=== PATIENT | female | born 1965 | race Asian ===

== ENCOUNTER → 2022-09-03 14:33 | Outpatient (CLI) | payer OTHER, SELFPAY ==
--- NOTE | 2022-09-03 14:38 | DI.RAD.S_ITS ---
PROCEDURE: XR SHOULDER LT MIN 2V INDICATIONS: Left shoulder pain TECHNIQUE: 3 views of the shoulder were acquired. COMPARISON: [facility], , SHOULDER MINIMUM 2VIEW RIGHT, 10/31/2013, 10:03. FINDINGS: Bones: No fractures or dislocations. No suspicious bony lesions. Visualized ribs appear intact. Degenerative changes of the left acromioclavicular joint. Soft tissue calcification adjacent to the superolateral margin of the humeral head compatible with sequela of chronic calcific rotator cuff tendinopathy. Coracoclavicular and acromioclavicular intervals are maintained. Soft tissues: No suspicious soft tissue calcifications. IMPRESSION: Left shoulder without acute fracture or dislocation. Degenerative changes of the left acromioclavicular joint. Findings compatible with chronic calcific rotator cuff tendinopathy. Dictated by: Matt Camargo M.D. on 09/03/2022 at 15:05 Approved by: Matt Camargo M.D. on 09/03/2022 at 15:07
== END ==
PROVIDERS: Family Provider Family Medicine; PCP Family Medicine; Referring Provider Registered Nurse; Visit Provider Registered Nurse
DX: M25.512 Pain in left shoulder (principal)
CPT/HCPCS: 73030

== ENCOUNTER → 2023-10-17 16:32 | Outpatient (CLI) | payer OTHER, SELFPAY | PROVIDERS: Family Provider Family Medicine; PCP Family Medicine; Visit Provider Nurse Practitioner Family | DX: R35.0 Frequency of micturition (principal) | CPT/HCPCS: 87086 ==

== ENCOUNTER → 2023-10-17 17:15 | Outpatient (CLI) | payer OTHER, SELFPAY ==
--- NOTE | 2023-10-17 17:17 | DI.RAD.S_ITS ---
PROCEDURE: XR KUB INDICATIONS: Hematuria TECHNIQUE: One view of the abdomen acquired. COMPARISON: None. FINDINGS: Surgical changes and devices: Surgical clips in right upper quadrant compatible with prior cholecystectomy.. Bowel: Bowel gas pattern is nonobstructive. Large amount of fecal material seen throughout the colon most pronounced in the ascending and descending colon. Soft tissues: No suspicious abdominal calcifications. Visualized solid organ contours appear normal in size. Bones: No suspicious bony lesions. IMPRESSION: No acute radiographic abnormalities. Large amount of fecal material seen throughout the colon. Query history of constipation. No suspicious soft tissue calcifications to suggest renal calculi. Further evaluation with CT can be considered if needed. Dictated by: Matt Camargo M.D. on 10/18/2023 at 10:44 Approved by: Matt Camargo M.D. on 10/18/2023 at 10:45
== END ==
LOC: RAD 17:16
PROVIDERS: Family Provider Family Medicine; PCP Family Medicine; Referring Provider Nurse Practitioner Family; Visit Provider Nurse Practitioner Family
DX: R31.9 Hematuria, unspecified (principal); R35.0 Frequency of micturition
CPT/HCPCS: 74018; 87086

== ENCOUNTER 2024-01-20 14:37 | Emergency (ER) | payer OTHER, SELFPAY ==
[2024-01-20 14:45] VITALS: BP 177/97; PULSE 97; RESP 18; TEMP 36.9; O2SAT 96; BMI 21.2
--- NOTE | 2024-01-20 14:53 | DI.RAD.S_ITS ---
PROCEDURE: XR SHOULDER LT MIN 2V INDICATIONS: pain TECHNIQUE: 3 views of the shoulder were acquired. COMPARISON: [facility], CR, XR SHOULDER LT MIN 2V, 09/03/2022, 14:52. FINDINGS: Bones: No fractures or dislocations. No suspicious bony lesions. Visualized ribs appear intact. Calcification lateral to the greater tuberosity. Acromioclavicular joint space narrowing with osteophytosis. Soft tissues: No suspicious soft tissue calcifications. IMPRESSION: No acute bony abnormality. Small calcification projecting lateral to the greater tuberosity, either dystrophic calcification or supraspinatus calcific tendinopathy. Moderate acromioclavicular osteoarthritis. Dictated by: Byron Gardiner M.D. on 01/20/2024 at 15:57 Approved by: Byron Gardiner M.D. on 01/20/2024 at 15:57
[2024-01-20 20:14] VITALS: BP 169/81; PULSE 92; RESP 16; O2SAT 100
--- NOTE | 2024-01-20 20:37 | ED.UPPEXIN ---
HPI - Extremity Injury (Upper) General Chief Complaint: Extremity Injury, Upper Stated Complaint: l shoulder pain t-3 Time Seen by Provider: 01/20/24 20:22 Source: patient Mode of arrival: Ambulatory History of Present Illness HPI narrative: 58-year-old female here complaining of left shoulder pain. This shoulder pain is not associated with any known injury, she has not having fevers, she has been intermittently using naproxen and are nonsteroidal topical with some relief. 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 Related Data Home Medications Medication Instructions Recorded Confirmed nortriptyline 10 mg capsule 10 mg PO DAILY 09/03/22 10/17/23 Previous Rx's Medication Instructions Recorded diclofenac sodium 1 % topical gel 2 g topical QID PRN muscle pain 09/03/22 (Voltaren Arthritis Pain) #100 grams methocarbamol 500 mg tablet 500 mg PO TID PRN muscle spasm #20 09/03/22 tabs naproxen 375 mg tablet 375 mg PO BID #30 tabs 01/20/24 Allergies Allergy/AdvReac Type Severity Reaction Status Date / Time hydrocodone [HYDROCODONE] Allergy Intermediate NAUSEA AND Unverified 10/17/23 16:12 DEPRESSION morphine [MORPHINE] Allergy Intermediate NAUSEA AND Unverified 10/17/23 16:12 DEPRESSION Patient History Surgical History Status post surgery (05/09/09) Social History Smoking Status: Never smoker Smoking Status: Never smoker alcohol intake frequency: a few times a month Substance Use Type: does not use Exam Initial Vital Signs Initial Vital Signs: Vital Signs Temperature 98.5 F 01/20/24 14:45 Pulse Rate 97 H 01/20/24 14:45 Respiratory Rate 18 01/20/24 14:45 Blood Pressure 177/97 H 01/20/24 14:45 Pulse Oximetry 96 01/20/24 14:45 Oxygen Delivery Method Room Air 01/20/24 14:45 Neck Other: Supple Skin General: no rashes or lesions noted Extrem Other: Left shoulder without deformity or swelling no discoloration. The left shoulder is diffusely tender. She guards against range of motion. There is no warmth to palpation of the shoulder distal neurovascular exam is intact Course Orders Ordered: ED Orders 01/20/24 14:53 XR shoulder LT min 2V Stat Vital Signs Vital signs: Vital Signs - 8 hr 08/19/24 14:45 01/20/24 20:14 Temperature 98.5 F Pulse Rate 97 H 92 H Respiratory Rate 18 16 Blood Pressure 177/97 H 169/81 H Pulse Oximetry 96 100 Oxygen Delivery Method Room Air Room Air MDM - Extremity Injury (Upper) Imaging Data Extremity x-ray #1: My Impression: Independently reviewed left shoulder x-ray, no acute fracture dislocation Radiologist's Impression: Per Radiology ?moderate osteoarthritis? MDM Narrative Medical decision making narrative: 58-year-old female with atraumatic left shoulder pain. Does not have a fracture dislocation distal neurovascular exam is intact I considered but do not suspect a septic joint. He has been using NSAIDs in consistently, recommended scheduled use of NSAIDs with Tylenol added provided her with a sling 1 week light duty at work with no use of the left arm and recommended she follow up with primary care Discharge Plan Departure Patient Disposition: Home Clinical Impression: Left shoulder pain Qualifiers: Chronicity: acute Qualified Code(s): M25.512 - Pain in left shoulder Activity Restrictions/Additional Instructions: Evaluation today does not show any serious cause for shoulder pain although you do appear to have some arthritis in your shoulder. I recommend that you rest your shoulder for a while. Use the applied sling but after 2 days begin to take your arm out of the sling and do gentle range of motion with the shoulder 2 to 3 times a day. Take oral naproxen twice daily, take this with food. You can also take omeprazole which is available without a prescription 20 mg daily to make this easier on your stomach. You can use acetaminophen (Tylenol) 650 mg up to 4 times a day as needed for pain. Make an appointment to follow up with her primary care provider soon. Prescriptions: New naproxen 375 mg tablet 375 mg PO BID Qty: 30 0RF No Action nortriptyline 10 mg capsule 10 mg PO DAILY methocarbamol 500 mg tablet 500 mg PO TID PRN (Reason: muscle spasm) Qty: 20 0RF diclofenac sodium [Voltaren Arthritis Pain] 1 % gel 2 g topical QID PRN (Reason: muscle pain) Qty: 100 0RF Rx Instructions: apply to left shoulder. Referrals: Keke Valencia MD [Primary Care Provider] - Stand Alone Forms: Patient Portal/API, Work Release Note
== END 2024-01-20 20:52 | disposition home or self-care (01) ==
PROVIDERS: Emergency Provider Emergency Medicine; Family Provider Family Medicine; PCP Family Medicine
DX: M25.512 Pain in left shoulder (principal)
CPT/HCPCS: 73030; 99283